=== PATIENT | female | born 1995 | race Two or more races ===

== ENCOUNTER 2025-01-25 08:53 | Observation (INO) | payer MEDICAID, OTHER ==
--- NOTE | 2025-01-25 13:24 | DVHDS2 ---
Physician Discharge Progress N Final Diagnosis: vag bleeding ,cramping 38wks Operations or Procedures: Operations or Procedures nst 38wks Other Interventions Other Interventions pt eloped Consultations: Consultations pt eloped Condition on Discharge: Undetermined Disposition: AMA Discharge Instructions: Diet: See Comment Activity: Medications: na Follow Up Care: Specialist: pt eloped Discharge Statement: "Patient was advised to return to the ER or call 911 if any headaches, dizziness, shortness of breath, chest pain, abdominal pain, bleeding, fevers, or worsening of medical condition. Patient was counseled about treatment plan, medications, possible side effects, patientverbalized understanding. All questions were answered to the best of my ability. This discharge took greater then 30 minutes in planning, reviewing documentatio n, counseling the patient, and discussing with other team members." Visit Coding OBGYN Date of Service: Jan 25, 2025 Billing Provider: NICHOLAS BRAVO DO HOUSING INSPECTOR Common Visit Codes: 77916-IWR/OBS SAME DATE (HIGH) HOUSING INSPECTOR Procedure Codes: 11442-66- NON-STRESS TEST NICHOLAS BRAVO DO Jan 25, 2025 13:24
== END 2025-01-25 09:45 | disposition home or self-care (01) ==
LOC: LDRP 08:53
PROVIDERS: ADMIT Obstetrics & Gynecology; ATTEND Obstetrics & Gynecology
DX: O46.93 Antepartum hemorrhage, unspecified, third trimester (principal); Z3A.38 38 weeks gestation of pregnancy; Z79.899 Other long term (current) drug therapy